=== PATIENT | female | born 2000 | race African-American/Black ===

== ENCOUNTER 2021-01-29 12:15 | Emergency (ER) | payer OTHER ==
[~2021-01-29] VITALS: Ht 170.2 cm; Wt 121.8 kg
[2021-01-29 12:23] VITALS: TEMP 98.1
[2021-01-29 13:02] LABS: BASO % 0.1 % (0.0-2.0); EOS % 0.1 % (0-4.0); GRAN # 9.7 (1.4-6.5); GRAN % 87.3 % (42.2-75.2); HEMATOCRIT 40.9 % (35.0-45.0); HEMOGLOBIN 13.5 g/dl (12.0-15.0); LYMPH # 0.9 (1.2-3.4); MEAN CELL VOLUME 88 fl (80.0-95.0); MEAN CORPUSCULAR HEMOGLOBIN 29 pg (26.0-32.0); MEAN CORPUSCULAR HGB CONC 33 g/dl (33.0-37.0); MEAN PLATELET VOLUME 10.9 fl (7.4-10.4); MONO # 0.5 (0.1-0.6); MONO % 4.3 % (1.7-9.3); PLATELET COUNT 226 K/mm3 (130-400); RED BLOOD COUNT 4.67 M/mm3 (4.10-5.30); REDCELL DISTRIBUTION WIDTH-CV 12.6 % (11.5-14.5)
[2021-01-29 13:13] LABS: ALBUMIN 4.3 gm/dL (3.5-5.0); BILIRUBIN,TOTAL 0.6 mg/dL (0.0-1.0); CALCIUM 9.3 mg/dL (8.4-10.2); CREATININE, serum 0.58 (0.52-1.25); POTASSIUM 3.5 mmol/L (3.4-5.0); TOTAL PROTEIN 7.5 gm/dL (6.4-8.2)
[2021-01-29 13:15] LABS: COLLECTION METHOD CLEAN CATCH
[2021-01-29 13:40] LABS: MUCOUS Present /lpf; PH 6 (5-8); URINE APPEARANCE Cloudy; URINE BACTERIA Rare /hpf; URINE BILIRUBIN Negative (NEGATIVE); URINE BLOOD Negative (NEGATIVE); URINE COLOR Amber; URINE GLUCOSE Negative (NEGATIVE); URINE KETONE 2+ (NEGATIVE); URINE LEUKOCYTE ESTERASE 2+ (NEGATIVE); URINE NITRATE Negative (NEGATIVE); URINE PROTEIN(semi-quant) 2+ (NEGATIVE)
[2021-01-29 14:47] VITALS: BP 120/80; PULSE 90
== END 2021-01-29 14:47 | disposition home or self-care (01) ==
LOC: COL.ER 12:15
PROVIDERS: Emergency Medicine
DX: O21.9 Vomiting of pregnancy, unspecified (principal); O99.331 Smoking (tobacco) complicating pregnancy, first trimester; F17.210 Nicotine dependence, cigarettes, uncomplicated; Z91.040 Latex allergy status; Z3A.01 Less than 8 weeks gestation of pregnancy
CPT/HCPCS: J7030

== ENCOUNTER 2021-04-03 06:07 | Emergency (ER) | payer OTHER, MEDICAID ==
[~2021-04-03] VITALS: Ht 170.2 cm; Wt 114.1 kg
[2021-04-03 06:19] VITALS: TEMP 97.8
[2021-04-03 07:02] LABS: COLLECTION METHOD CLEAN CATCH
[2021-04-03 07:25] LABS: AMORPHOUS CRYSTAL Present /uL; MUCOUS Present /lpf; PH 7 (5-8); URINE APPEARANCE Cloudy; URINE BACTERIA Rare /hpf; URINE BILIRUBIN Negative (NEGATIVE); URINE BLOOD 3+ (NEGATIVE); URINE COLOR Yellow; URINE GLUCOSE Negative (NEGATIVE); URINE KETONE Negative (NEGATIVE); URINE LEUKOCYTE ESTERASE Trace (NEGATIVE); URINE NITRATE Negative (NEGATIVE); URINE PROTEIN(semi-quant) Negative (NEGATIVE); URINE RBC 0-2 /hpf; URINE UROBILINOGEN Negative (NEGATIVE)
[2021-04-03 07:35] LABS: BASO % 0.2 % (0.0-2.0); EOS # 0.1 (0.0-0.7); EOS % 0.7 % (0-4.0); GRAN % 74.2 % (42.2-75.2); HEMATOCRIT 32.9 % (37.0-47.0); HEMOGLOBIN 11.1 g/dl (12.5-16.0); LYMPH # 1.6 (1.2-3.4); LYMPH % 19.6 % (20.0-51.0); MEAN CELL VOLUME 87 fl (80.0-100.0); MEAN CORPUSCULAR HEMOGLOBIN 29 pg (27.0-31.0); MEAN CORPUSCULAR HGB CONC 34 g/dl (33.0-37.0); MEAN PLATELET VOLUME 10.9 fl (7.4-10.4); MONO # 0.4 (0.1-0.6); MONO % 4.8 % (1.7-9.3); PLATELET COUNT 168 K/mm3 (130-400); RED BLOOD COUNT 3.78 M/mm3 (4.10-5.30); REDCELL DISTRIBUTION WIDTH-CV 13.4 % (11.5-14.5)
[2021-04-03 08:30] VITALS: BP 106/74; PULSE 83
== END 2021-04-03 08:30 | disposition home or self-care (01) ==
LOC: COL.ER 06:07
PROVIDERS: Emergency Medicine
DX: O46.92 Antepartum hemorrhage, unspecified, second trimester (principal); Z3A.15 15 weeks gestation of pregnancy

== ENCOUNTER 2021-04-16 10:26 | Emergency (ER) | payer OTHER, MEDICAID ==
[~2021-04-16] VITALS: Ht 170.2 cm; Wt 114.1 kg
[2021-04-16 10:47] VITALS: BP 127/86; TEMP 98.4
[2021-04-16 11:17] LABS: COLLECTION METHOD CLEAN CATCH
[2021-04-16 11:29] LABS: MUCOUS Present /lpf; PH 8 (5-8); SQUAMOUS EPITHELIAL 0-2 /hpf; URINE APPEARANCE Hazy; URINE BACTERIA None Seen /hpf; URINE BILIRUBIN Negative (NEGATIVE); URINE BLOOD 3+ (NEGATIVE); URINE COLOR Yellow; URINE GLUCOSE Negative (NEGATIVE); URINE KETONE Trace (NEGATIVE); URINE LEUKOCYTE ESTERASE Negative (NEGATIVE); URINE NITRATE Negative (NEGATIVE); URINE PROTEIN(semi-quant) Negative (NEGATIVE); URINE UROBILINOGEN Negative (NEGATIVE)
[2021-04-16 12:12] LABS: BASO % 0.1 % (0.0-2.0); EOS % 0.3 % (0-4.0); GRAN # 5.4 (1.4-6.5); GRAN % 74.1 % (42.2-75.2); HEMOGLOBIN 11.5 g/dl (12.5-16.0); LYMPH # 1.5 (1.2-3.4); LYMPH % 20.2 % (20.0-51.0); MEAN CELL VOLUME 88 fl (80.0-100.0); MEAN CORPUSCULAR HEMOGLOBIN 30 pg (27.0-31.0); MEAN CORPUSCULAR HGB CONC 34 g/dl (33.0-37.0); MEAN PLATELET VOLUME 10.9 fl (7.4-10.4); MONO # 0.4 (0.1-0.6); MONO % 4.8 % (1.7-9.3); PLATELET COUNT 173 K/mm3 (130-400); RED BLOOD COUNT 3.85 M/mm3 (4.10-5.30); REDCELL DISTRIBUTION WIDTH-CV 13.2 % (11.5-14.5)
[2021-04-16 12:13] LABS: HEMATOCRIT 33.9 % (37.0-47.0)
[2021-04-16 12:23] VITALS: PULSE 90
== END 2021-04-16 12:22 | disposition home or self-care (01) ==
LOC: COL.ER 10:26
PROVIDERS: Family Medicine
DX: O46.92 Antepartum hemorrhage, unspecified, second trimester (principal); Z3A.17 17 weeks gestation of pregnancy

== ENCOUNTER 2021-09-12 17:44 | Outpatient (CLI) | payer OTHER, MEDICAID ==
[~2021-09-12] VITALS: Ht 170.2 cm; Wt 132.3 kg
[2021-09-12 17:50] VITALS: BP 129/60; PULSE 87; TEMP 98.1
[2021-09-12 18:22] LABS: HEMOGLOBIN 11.3 g/dl (12.5-16.0); MEAN CELL VOLUME 87 fl (80.0-100.0); MEAN CORPUSCULAR HEMOGLOBIN 29 pg (27.0-31.0); MEAN CORPUSCULAR HGB CONC 34 g/dl (33.0-37.0); MEAN PLATELET VOLUME 11.4 fl (7.4-10.4); PLATELET COUNT 175 K/mm3 (130-400); RED BLOOD COUNT 3.84 M/mm3 (4.10-5.30); REDCELL DISTRIBUTION WIDTH-CV 12.6 % (11.5-14.5)
[2021-09-12 18:24] LABS: HEMATOCRIT 33.2 % (37.0-47.0)
--- NOTE | 2021-09-12 18:25 | NUR ---
1750 PATIENT HERE FROM OFFICE FOR TACHYCARDIA AT OFFICE. EFM ON FHT 174 GOOD ACCELERATIONS, BABY VERY ACTIVE. NO CONTRACTIONS NOTED. ASSESSMENT COMPLETED. IVF STARTED IN RIGHT HAND AND LR BOLUS STARTED PER DR. CUMMINGS ORDERS. LABS ALSO DRAWN. PATIENT DENIES NEEDS AT THIS TIME.
[2021-09-12 18:28] VITALS: BP 124/71; PULSE 113
--- NOTE | 2021-09-12 18:29 | NUR ---
1825 REPORT GIVEN TO ITANA SALAZAR AT THIS TIME TO ASSUME CARE
[2021-09-12 18:38] LABS: ALBUMIN 2.6 gm/dL (3.5-5.0); BILIRUBIN,TOTAL 0.3 mg/dL (0.2-1.2); CALCIUM 8.3 mg/dL (8.4-10.2); CREATININE, serum 0.59 mg/dL (0.57-1.11); POTASSIUM 3.7 mmol/L (3.5-4.5); TOTAL PROTEIN 6.1 gm/dL (6.2-8.1)
[2021-09-12 19:00] VITALS: BP 116/58; PULSE 94
[2021-09-12 19:24] LABS: TRICYCLIC ANTIDEPRESS URINE NEGATIVE
[2021-09-12 19:30] VITALS: BP 123/64; PULSE 97
[2021-09-12 19:45] VITALS: BP 112/60; PULSE 97
--- NOTE | 2021-09-12 19:45 | NUR ---
1929 Dr. Carrasco called, lab work reported. AST 45, all blood pressures WNL and this was reported. Dr. Carrasco would like the patient to return to the office in 2 days, Friday 09/14, for repeat lab work. 1944 Discharge instructions reviewed with patient including to drink 100 oz of water a day and to call the office to schedule an appointment for repeat lab work on 09/14. Labor precautions were reviewed. Patient states understanding.
== END 2021-09-12 20:00 | disposition home or self-care (01) ==
LOC: LDRO 17:44 → LDR 18:01 → LDRO 20:00
PROVIDERS: Obstetrics & Gynecology
DX: O36.8930 Maternal care for other specified fetal problems, third trimester, not applicable or unspecified (principal); Z3A.38 38 weeks gestation of pregnancy
CPT/HCPCS: OP; J7120

== ENCOUNTER 2021-09-15 14:58 | Inpatient (IN) | payer OTHER, MEDICAID ==
[2021-09-15] VITALS (27 sets, daily range): BP systolic 105–150; BP diastolic 52–93; PULSE 88–153; TEMP 97.8–98.3
[~2021-09-15] VITALS: Ht 170.2 cm; Wt 134.5 kg
--- NOTE | 2021-09-15 15:00 | NUR ---
1500-, 39.0, ambulates to LDR6, with her mother. Patient reports that she thinks her water broke at 1348 today. Patient denies VB or decreased movement. Reports she is having ctx, but they are irregular at this time. Patient changed into gown. EFM/TOCO explained and applied. Assessments completed. 1520-Aminitest explained and completed at this time with a positive result. SVE 280/-2. FHR and ctx difficult to trace due to maternal position, this RN at bedside adjusting monitor. 1600-Consents explained and signed. 1700-IV started by MARIE Pinon.
[2021-09-15] MEDS ORDERED: FERROUSGLUC256MG (15:53)
[2021-09-15] MEDS ORDERED: PRENATAL TABLET PO (15:53)
[2021-09-15] MEDS ORDERED: PROBIOTIC ACID1 EAC3 PO (15:54)
[2021-09-15] MEDS ORDERED: TYLENOL 500MG500 MG PO (15:55)
[2021-09-15] MEDS ORDERED: FLEXERIL 1010 MG/TAB PO (15:56)
[2021-09-15] MEDS ORDERED: SLOW FE142 MG PO (15:57)
[2021-09-15 17:17] LABS: BASO % 0.1 % (0.0-2.0); EOS % 0.3 % (0-4.0); GRAN # 6.3 K/mm3 (1.4-6.5); GRAN % 71.1 % (42.2-75.2); HEMATOCRIT 37.2 % (37.0-47.0); HEMOGLOBIN 12.5 g/dl (12.5-16.0); MEAN CELL VOLUME 89 fl (80.0-100.0); MEAN CORPUSCULAR HEMOGLOBIN 30 pg (27.0-31.0); MEAN CORPUSCULAR HGB CONC 34 g/dl (33.0-37.0); MEAN PLATELET VOLUME 11.2 fl (7.4-10.4); MONO # 0.4 K/mm3 (0.1-0.6); PLATELET COUNT 169 K/mm3 (130-400); RED BLOOD COUNT 4.19 M/mm3 (4.10-5.30); REDCELL DISTRIBUTION WIDTH-CV 12.6 % (11.5-14.5)
[2021-09-15 17:30] LABS: TRICYCLIC ANTIDEPRESS URINE NEGATIVE
--- NOTE | 2021-09-15 17:30 | NUR ---
1730-Patient requesting epidural at this time. 1737-IRVIN Pittman notified of patient's request. 1739-IV bolus started. Plan of care discussed.
--- NOTE | 2021-09-15 18:00 | NUR ---
1800-IRVIN Pittman at bedside. Prepping patient for epidural. 181-Single shot given by IRVIN Pittman. Patient tolerates well, no signs of adverse reactions noted. 1820-Patient repositioned in bed. EFM/TOCO readjusted at this time. Plan of care discussed.
--- NOTE | 2021-09-15 18:15 | NUR ---
1815-FHR and ctx difficult to trace due to maternal position from epidural placement. This RN at bedside adjusting monitors.
--- NOTE | 2021-09-15 20:55 | NUR ---
2054- THIS RN AT BEDSIDE. SVE 2. PATIENT VERBALIZES THAT SHE IS FEELING A LOT MORE PAIN AND MORE OF HER CONTRACTIONS NOW EVEN AFTER HITTING HER BUTTON SEVERAL TIMES OVER THE PAST 30 MINUTES. THIS RN ADVISES SHE WILL CALL ANESTHESIA PROVIDER AND HAVE THEM COME TROUBLE SHOOT AND TRY TO FIX IT SO SHE CAN GET COMFORTABLE. 2056- THIS RN CALLED ANESTHESIA PROVIDER AND NOTIFIED THEM. THEY ARE ON THEIR WAY. 2100- THIS RN AND IRVIN ROJAS AT BEDSIDE. 2102- PATIENT BEGINS SEIZING IN THE BED WHILE HOME DECORATOR IS GIVING MEDICATION THROUGH EPIDURAL. PATIENT TURNED TO HER LEFT SIDE AND 02 PLACED ON PATIENT. CALL LIGHT PULLED OUT OF WALL TO NOTIFY STAFF WE NEEDED HELP. CHARGE NURSE Evelyn FERNÁNDEZ AT BEDSIDE ALONG WITH NURSERY NURSE Laureen CONNOLLY, AND LABOR NURSE Geraldine VARGHESE. PATIENT HAD ABOUT A 60 SECOND SEIZURE PER ANESTHESIA PROVIDER. FHR UNABLE TO TRACE DURING THIS TIME DUE TO SEIZURE 2104- FHR IN THE 90S. MATERNAL 02 SAT TRACING MATERNAL HR AT 130S. PATIENT STARTING TO COME TO AT THIS POINT. 2105- DR. LITTLE CALLED AND NOTIFIED BY CHARGE NURSE OF SITUATION. FHR 90-100. 2106- THIS RN REMAINS AT BEDSIDE WITH PATIENT, HOME DECORATOR AND CHARGE NURSE. FHR 100S. 2107- FHR 110S. 2108- FHR 110-115. 2109- DR. LITTLE CALLED AGAIN AND NOTIFIED FHR UP AGAIN AROUND 115. 2114- DR. LITTLE AT BEDSIDE FOR EVALUATION. SVE -2. DISCUSSED WITH PATIENT AND SUPPORT PEOPLE THE PLAN OF CARE GOING FORWARD. THEY VERBALIZED UNDERSTANDING WITH NO FURTHER QUESTIONS. FHR 150S. CALL LIGHT WITHIN REACH.
--- NOTE | 2021-09-15 21:32 | NUR ---
2131- THIS RN AND IRVIN ROJAS AT BEDSIDE TO REPLACE EPIDURAL CATHETER. PATIENT ASSISTED INTO SEATED POSITION. MATERNAL 02 SAT TRACING. 2133- PATIENT BEGINS VOMITING. HAS 350 OF EMESIS OUT. 2139- TEST DOSE, SEE ANESTHESIA RECORD. PATIENT TOLERATED WELL WITH NO SIGNS OF COMPLICATIONS AT THIS TIME. 2144- PATIENT ASSISTED TO SF POSITION IN THE BED. PATIENT AND FHR STABLE. DENIES FURTHER NEEDS. CALL LIGHT WITHIN REACH.
--- NOTE | 2021-09-15 23:00 | NUR ---
2300- DR. LITTLE TO BEDSIDE FOR SVE. PATIENT IS COMPLETE AND +2. PROVIDER VERBALIZED THAT WE WOULD WAIT ON PUSHING UNTIL PATIENT'S MOTHER RETURNED IN A FEW MINUTES. NURSERY STAFF AND CHARGE NURSE NOTIFIED OF THIS WELL. 2312- CRUZ REMOVED WITH 400 UO NOTED. 2315- FIRST PUSH WITH PROVIDER. CONTINUES PUSHING WITH PROVIDER DURING CONTRACITONS. THIS RN AND NURSERY STAFF IN THE ROOM WELL. 2318- FSE REMOVED DUE TO PROVIDER STATING WE MAY NEED TO USE VAC ASSISTED DELIVERY. EXTERNAL FHR TRACING AT THIS TIME. PATIENT CONTINUES PUSHING WITH PROVIDER. 2327- PROVIDER TELLS PATIENT SHE THINKS IT WOULD BE BEST TO DO A VAC ASSISTED DELIVERY AT THIS TIME DUE TO TACHYCARDIA. PATIENT CONSENTS TO THIS AND ROOM IS SET UP FOR DELIVERY WITH BED BROKEN DOWN. PROVIDER GOWNS UP AND GETS READY FOR DELIVERY. 2330- VAC PUT ON BY PROVIDER AND BEGINS PUSHING WITH PATIENT AGAIN DURING CONTRACTIONS. 2333- HEAD DELIVERY AT THIS TIME. SHOULDER DYSTOCIA CALLED BY PROVIDER. GHASSAN, SUPRAPUBIC PRESSURE AND CORSKCREW DONE BY STAFF TO RELIEVE 50 SECOND SHOULDER. 2334- VAVD OF VIABLE FEMALE . INFANT PLACED TO MOTHER ABDOMEN WHERE CORD WAS CUT AND WAS TAKE TO WARMER TO BE ASSESSED BY NURSERY STAFF. CHARGE NURSE AND ADDITIONAL NURSERY STAFF IN THE ROOM AT THIS TIME WELL TO HELP WITH DELIVERY. 2337- OF PLACENTA. CORD GASES DRAWN BY CHARGE NURSE. 2ND DEGREE TEAR AND VAGINAL WALL LACERATION NOTED AND REPAIRED BY PROVIDER. PITOCIN STARTED PER PROTOCOL AT THIS TIME AT 333ML/HR. THIS RN BEGINS DOING FUNDAL RUB AND NOTED GOOD UTERINE TONE WITH MODERATE LOCHIA AND SMALL CLOTS DURING THIS. 2345- REPAIRS FINISHED. VITALS STABLE. BLEEDING STABLE. FUNDUS FIRM. 300EBL NOTED BY PROVIDER. PATIENT AND ROOM CLEANED UP AND PUT BACK TOGETHER. NEW CHUX, PERIPAD AND ICEPACK TO PERINEUM. RECOVERY STARTED.
[2021-09-16] VITALS (10 sets, daily range): BP systolic 101–128; BP diastolic 31–68; PULSE 58–109; TEMP 97.8–98.9
--- NOTE | 2021-09-16 09:54 | NUR ---
Supervisor [employer] met with patient in response to director of social services consult for history of marijuana use during . Patient lives alone in [place] however reports that her mother, Catia will be staying with her for the next month before returning to [place]. Patient's cousin, Sami is at bedside and is also supportive. Patient gives permission to conduct assessment with Sami at bedside. This is patient's first child and she reports baby's father is supportive, but is currently deployed. Father of baby is Sidney Porter. Patient is employed at [employer] and plans to report back to work on 10/31/21. Patient's cousin Sami will be providing childcare. Patient is currently and plans to apply for WIC. SW provided [facility] Resource Guide and reviewed resources from [facility], [facility] [employer] and [facility]. Patient states she is interested in childcare assistance and will follow up with [facility]. Patient denied needing any mental health resources. SW addressed patient's positive UDS for marijuana during (02/24/21). Patient advised the last time she smoked was in June or July. Patient had a negative UDS at time of delivery. Baby's cord blood is pending. Patient has no concerns about returning home upon discharge. MIRIAN collaborated with Dr. Baker about the above information. SW made report to CPS due to positive UDS during . (intake#[id number]).
[2021-09-17 06:45] VITALS: BP 111/67; PULSE 81; TEMP 97.5
[2021-09-17] MEDS ORDERED: IBU800 M1 PO (09:47)
[2021-09-17] MEDS ORDERED: ROXICODONE 55 MG/TAB PO (09:48)
--- NOTE | 2021-09-17 14:30 | NUR ---
DISCHARGE TEACHING COMPLETED. EDUCATED ON MAKING 6 WEEK FOLLOW UP APPOINTMENT AND PRESCRIPTIONS TO BE PICKED UP. QUESTIONS INVITED AND ANSWERED.
== END 2021-09-17 15:40 | disposition home or self-care (01) | DRG 806 ==
LOC: LDRO 14:58 → LDR 15:00 → OB 15:00
PROVIDERS: ADMIT Obstetrics & Gynecology
PROC: 10E0XZZ Delivery of Products of Conception, External Approach (ICD-10-PCS; principal; 2021-09-15)
PROC: 0KQM0ZZ Repair Perineum Muscle, Open Approach (ICD-10-PCS; 2021-09-15)
DX: O99.214 Obesity complicating childbirth (principal); O99.12 Other diseases of the blood and blood-forming organs and certain disorders involving the immune mechanism complicating childbirth; Z37.0 Single live birth; E66.9 Obesity, unspecified; Z3A.39 39 weeks gestation of pregnancy; D69.6 Thrombocytopenia, unspecified; O62.1 Secondary uterine inertia; O70.1 Second degree perineal laceration during delivery
CPT/HCPCS: J2590; J2795; J7120